=== PATIENT | female | born 1970 | race Caucasian/White ===

== ENCOUNTER 2018-05-09 11:19 | Emergency (ER) | payer BC ==
[~2018-05-09] VITALS: Ht 167.6 cm; Wt 71.0 kg
[~2018-05-09 11:19] MED LIST: NOHOMEMEDS
[2018-05-09 12:09] LABS: HEMATOCRIT 42.4 % (36.0-46.0); HEMOGLOBIN 14.7 G/DL (11.9-15.5); MCH 31.5 PG (29.0-34.0); MCHC 34.7 G/DL (30.0-36.0); MCV 90.8 FL (83-99); PLATELET COUNT 239 K/uL (156-360); RBC DIS.WIDTH-CV 11.9 % (11.8-14.6); RBC DIS.WIDTH-SD 39.7 % (39-53); RED BLOOD COUNT 4.67 M/uL (3.80-5.20); WHITE BLOOD COUNT 5.8 K/uL (4.1-10.2)
[2018-05-09 12:18] LABS: CHLORIDE 108 mEq/L (99-109); POTASSIUM 4.3 mEq/L (3.7-5.4); SODIUM 138 mEq/L (136-147)
[2018-05-09 12:20] LABS: GLUCOSE 120 mg/dL (70-99)
[2018-05-09 12:23] LABS: CREATININE 0.8 mg/dL (0.6-1.3); GFR ESTIMATE (CALCULATED) > 59 mL/min/
[2018-05-09 12:24] LABS: UREA NITROGEN (BUN) 8 mg/dL (9-23)
[2018-05-09 14:15] VITALS: BP 125/80
== END 2018-05-09 14:21 | disposition home or self-care (01) ==
LOC: EME 11:19
DX: R42 Dizziness and giddiness (principal); R51 Headache
CPT/HCPCS: 80048; 85027; 93005; 99281; 99284